=== PATIENT | female | born 1955 | race Caucasian/White ===

== ENCOUNTER → 2016-05-30 | Outpatient (CLI) | payer OTHER ==
[~2016-05-30] MED LIST: ATIVAN1 MG PO; HYSINGLA ER30 MG PO; IBUPROFEN 800800 M1 PO; IMITREX100 MG PO; LEVOTHYROXIN0.075 MG PO; NORCO 5-325 TA1 EACH PO; SUMATRIPTA4 MG/0.51 SQ; XANAX1 MG PO
== END ==
LOC: ULTRA 12:26
DX: R10.9 Unspecified abdominal pain (principal); R10.13 Epigastric pain

== ENCOUNTER → 2017-04-17 | Outpatient (CLI) | payer OTHER | LOC: ULTRA 12:42 | DX: M79.605 Pain in left leg (principal); M79.89 Other specified soft tissue disorders ==

== ENCOUNTER 2021-02-08 13:28 | Emergency (ER) | payer OTHER ==
[~2021-02-08] VITALS: Ht 157.5 cm; Wt 77.6 kg
[2021-02-08] MEDS ORDERED: MEDROLDOSEPACK PO (16:23)
[2021-02-08] MEDS ORDERED: LIDODERM1 EACH TOP (16:23)
[2021-02-08 16:51] VITALS: BP 120/76
== END 2021-02-08 16:55 | disposition home or self-care (01) ==
LOC: ER 13:28
DX: M54.16 Radiculopathy, lumbar region (principal); M79.7 Fibromyalgia; F17.210 Nicotine dependence, cigarettes, uncomplicated; Z98.890 Other specified postprocedural states; Z88.8 Allergy status to other drugs, medicaments and biological substances

== ENCOUNTER 2021-07-02 16:33 | Emergency (ER) | payer OTHER ==
[~2021-07-02] VITALS: Ht 160 cm; Wt 59.0 kg
--- NOTE | ~2021-07-02 | EMS ---
[address] [address] EMS Patient Care Report Name: KATHLEEN PIKE Room #: DEP HUBER Craig#: [id number] Admission: 07/02/21 Attend Phys: Discharge: 07/02/21 Date of : 59 Report #: [id number] THIS REPORT FOR: //name// Report Transmitted: 07/05/2021 08:14 EMS Care Summary [place], [place]/[facility] Incident [id number] @ 07/02/2021 16:00 Incident Location [address] [place] [id number] Patient KATHLEEN PIKE Female, 66 Years 1955 Patient Address [address] [place] [id number] Patient History Lupus,Back Pain (Chronic), Patient Allergies No known allergies, Patient Medications None Reported, Chief Complaint Mid back pain Disposition Transported No Lights/[place] Dispatch Reason Back Pain (Non-Traumatic) Transported To [facility] Narrative Medic on [address] stated that Pt meet them walking downstairs crying and upset due to her mid back is hurting. Medic stated that Pt stated she attempted to [address] [address] EMS Patient Care Report Name: KATHLEEN PIKE Room #: DEP Rafa#: [id number] Admission: 07/02/21 Attend Phys: Discharge: 07/02/21 Date of : 59 Report #: [id number] get her pain medication refilled today but was unable to do it cause it was too soon. Pt stated that pain is constant and the pain medication takes the edge off of it and makes it barrable . Pt denied any trauma to area , no falling and Pt rated her pain at a 10/10 with no other complaints noted. Pt found standing outside waiting for Ambulance, Pt is with no signs of distress noted. Pt is C/O Mid thoracic back pain that is constant and she has has since the s. Pt stated she had to take extra pain medication and now has ran out and attempted to get it refilled early but could not. Pt stated she needs to go to the ER for help, evaluation and get pain relief from her pain. Pt is a GCS 15 and rated her pain at a 10/10 with no relief during transport and received by RN in ER. Initial Vitals @16:11P: 107,R: 18,BP: 160/129,Pain: 10/10,GCS: 15,SpO2: 95,Revised Trauma: 12, @16:17P: 100,R: 20,BP: 140/59,Pain: 10/10,GCS: 15,SpO2: 96,Revised Trauma: 12, Assessments @16:11MENTAL:Person Oriented,Event Oriented,Place Oriented,Time Oriented,SKIN:HEENT:Head/Face: No Abnormalities,Neck/Airway: No Abnormalities,LUNG SOUNDS:General: No Abnormalities,ABDOMEN:General: No Abnormalities,PELVIS//GI:No Abnormalities,EXTREMITIES:Capillary Refill: Right Upper: < 2 Sec,Left Arm: No Abnormalities,Right Arm: No Abnormalities,Left Leg: No Abnormalities,Right Leg: No Abnormalities,PULSE:Radial: 2+ Normal,NEURO:No Abnormalities,@16:28MENTAL:Person Oriented,Event Oriented,Place Oriented,Time Oriented,SKIN:HEENT:Head/Face: No Abnormalities,Neck/Airway: No Abnormalities,LUNG SOUNDS:General: No Abnormalities,ABDOMEN:General: No Abnormalities,PELVIS//GI:No Abnormalities,EXTREMITIES:Capillary Refill: Right Upper: < 2 Sec,Left Arm: No Abnormalities,Right Arm: No Abnormalities,Left Leg: No Abnormalities,Right Leg: No Abnormalities,PULSE:Radial: 2+ Normal,NEURO:No Abnormalities, Impression Back Pain Procedures @16:14 ALS Assessment Response: UnchangedSucceeded Timeline 15:58,Call Received 15:58,Dispatch Notified 16:00,Dispatched 16:01,En Route 16:10,On Scene 16:11,At Patient [address] [address] EMS Patient Care Report Name: KATHLEEN PIKE Room #: [facility]#: [id number] Admission: 07/02/21 Attend Phys: Discharge: 07/02/21 Date of : 59 Report #: [id number] 16:11,BP: 160/129 M,PULSE: 107,RR: 18 R,SPO2: 95 Ox,ETCO2: ,BG: ,PAIN: 10,GCS: 15, 16:14,ALS Assessment,Response: UnchangedSucceeded, 16:14,Depart Scene 16:17,BP: 140/59 M,PULSE: 100,RR: 20 R,SPO2: 96 Ox,ETCO2: ,BG: ,PAIN: 10,GCS: 15, 16:30,At Destination 16:55,Call Closed Disclaimer v1.1 Copyright 2021 [employer] This EMS Care Summary contains data elements from the applicable legal record (which may be displayed differently). It is designed to provide pertinent information for the following purposes: continuity of care, clinical quality, and state data reporting. The complete legal record is available to ED staff and administrators of the receiving hospital in [employer] Patient Tracker. All data is provided "as is."
[~2021-07-02 16:33] MED LIST changes: +LIDODERM1 EACH TOP; +MEDROLDOSEPACK PO
[2021-07-02 16:41] VITALS: BP 118/69
[2021-07-02] MEDS ORDERED: NORCO5 PO (18:25)
== END 2021-07-02 19:25 | disposition home or self-care (01) ==
LOC: ER 16:33
DX: G89.29 Other chronic pain (principal); M54.50 Low back pain, unspecified; M79.7 Fibromyalgia; F32.9 Major depressive disorder, single episode, unspecified; F41.9 Anxiety disorder, unspecified; F17.210 Nicotine dependence, cigarettes, uncomplicated; Z98.890 Other specified postprocedural states; Z79.899 Other long term (current) drug therapy; Z88.8 Allergy status to other drugs, medicaments and biological substances; Z88.6 Allergy status to analgesic agent